=== PATIENT | male | born 1990 | race African-American/Black ===

== ENCOUNTER 2016-08-31 08:00 | Outpatient (CLI) | payer MEDICAID | END 2016-08-31 23:59 | disposition home or self-care (01) | DX: F33.3 Major depressive disorder, recurrent, severe with psychotic symptoms (principal); E55.9 Vitamin D deficiency, unspecified ==

== ENCOUNTER 2016-09-05 11:31 | Outpatient (CLI) | payer MEDICAID | END 2016-09-05 11:32 | disposition home or self-care (01) | DX: E78.00 Pure hypercholesterolemia, unspecified (principal) ==

== ENCOUNTER 2017-02-02 18:28 | Outpatient (CLI) | payer MEDICAID | END 2017-02-02 18:29 | disposition critical access hospital (66) | LOC: EMS 18:28 | PROVIDERS: ATTEND Surgery | DX: K08.89 Other specified disorders of teeth and supporting structures (principal) | CPT/HCPCS: A0425; A0429 ==

== ENCOUNTER 2017-02-02 18:52 | Emergency (ER) | payer MEDICAID ==
[2017-02-02 19:02] VITALS: BP 128/84
--- NOTE | 2017-02-02 20:26 | ED Physician Documentation ---
PD HPI HEENT - Stated complaint Stated Complaint: TOOTH PN - Chief complaint Chief Complaint: Heent - History obtained from History obtained from: Patient - History of Present Illness Timing - duration: Days Timing - details: Gradual onset, Still present, Waxing and waning Location: Tooth (right upper molar) Worsens: Swalllowing, Temperatures Associated symptoms: No: Fever, Congestion, Rhinorrhea, Facial swelling Recently seen: Not recently seen (had seen [facility] but told he needed referral to oral surgeon or such. But was not given name nor number of anyone.) Review of Systems Constitutional: denies: Fever, Chills Throat: reports: Dental pain / toothache. denies: Oral lesions / sores, Sore throat PD PAST MEDICAL HISTORY - Past Medical History Past Medical History: Yes Cardiovascular: High cholesterol - Past Surgical History Past Surgical History: No - Present Medications Home Medications: Ambulatory Orders Medication Instructions Recorded Confirmed Cephalexin [Keflex] 500 mg PO QID #24 capsule 02/02/17 HYDROcod/ACETAM 5/325 [[place] 5/325] 1 tab PO Q6H PRN #15 tablet 02/02/17 Naproxen 375 mg PO BID #20 tablet 02/02/17 - Allergies Allergies/Adverse Reactions: Allergies Allergy/AdvReac Type Severity Reaction Status Date / Time No Known Drug Allergies Allergy Verified 02/02/17 19:32 - Social History Does the pt smoke?: No Smoking Status: Never smoker Does the pt drink ETOH?: No Does the pt have substance abuse?: No - Immunizations Immunizations are current?: Yes - POLST Patient has POLST: No PD ED PE NORMAL - Vitals Vital signs reviewed: Yes - General General: Alert and oriented X 3, Well developed/nourished - HEENT HEENT: Pharynx benign. No: Dentition benign (most of his teeth are pretty good , actually, with right upper 2nd molar with decay of half of it, but in side of the tooth, leaving bowl shaped defect. Some mild swelling of gum, but is tender. ) - Neck Neck: Supple, no meningeal sign, No adenopathy - Cardiac Cardiac: RRR, No murmur - Respiratory Respiratory: Clear bilaterally - Derm Derm: Normal color, Warm and dry, No rash Results - Vitals Vitals: Vital Signs - 24 hr 02/02/17 19:01 Temperature 36.9 C Heart Rate 61 Respiratory 17 Rate Blood Pressure 128/84 H O2 Saturation 97 Oxygen O2 Source Room air PD MEDICAL DECISION MAKING - ED course Complexity details: considered differential (dental pain and some gum swelling. Tooth defect amenable to temporary filling, which I placed. ), d/w patient Departure - Departure Disposition: Home, Self Care Clinical Impression: Pain, dental, Dental infection Condition: Stable Record reviewed to determine appropriate education?: Yes Instructions: ED Tooth Pain Follow-Up: Osmar Kothari MD [Primary Care Provider] - Wallace Blank DDS [Physician No Access] - Prescriptions: Cephalexin [Keflex] 500 mg PO QID #24 capsule Naproxen 375 mg PO BID #20 tablet HYDROcod/ACETAM 5/325 [Melrose 5/325] 1 tab PO Q6H PRN #15 tablet PRN Reason: Pain Comments: Try to keep the temporary filling in place there and no firm chewing on that side. Naproxen twice daily for the next 7-10 days. Add Tylenol or hydrocodone if needed for pain. Cephalexin antibiotic for infection of the area. Follow- up with Akil nugent regarding tooth extraction. Alternatively there is she [facility] dental clinic. Discharge Date/Time: 02/02/17 20:56
[2017-02-02] MEDS ORDERED: HYDROcod/ACETAM 5/325 MG TABLET PO STA (20:43)
[2017-02-02] MEDS ORDERED: CEPHALEXIN 250 MG CAPSULE PO STA (20:43)
[2017-02-02] MEDS ORDERED: IBUPROFEN 400 MG TABLET PO STA (20:43)
[2017-02-02] MEDS ORDERED: IBUPROFEN 400 MG TABLET PO ONE (20:52)
[2017-02-02] MEDS ORDERED: HYDROcod/ACETAM 5/325 MG TABLET ONE (20:52)
[2017-02-02] MEDS ORDERED: CEPHALEXIN 250 MG CAPSULE PO ONE (20:52)
== END 2017-02-02 20:56 | disposition home or self-care (01) ==
LOC: ED 18:52
DX: K04.7 Periapical abscess without sinus (principal); K08.89 Other specified disorders of teeth and supporting structures; E78.00 Pure hypercholesterolemia, unspecified
CPT/HCPCS: 99283; A9270

== ENCOUNTER 2017-03-02 15:04 | Outpatient (CLI) | payer MEDICAID ==
[2017-03-03 13:11] LABS: CHOL/HDL RATIO 5.4 (<5.0); CHOLESTEROL 241 mg/dL; HDL CHOLESTEROL 45 mg/dL; LDL/HDL RATIO 4.1 (<3.6); TRIGLYCERIDES 67 mg/dL; VLDL CHOLESTEROL 13 mg/dL
== END 2017-03-02 15:05 | disposition home or self-care (01) ==
LOC: LAB.F 15:04
PROVIDERS: ATTEND Internal Medicine
DX: E78.00 Pure hypercholesterolemia, unspecified (principal); E55.9 Vitamin D deficiency, unspecified
CPT/HCPCS: 36415; 80061; 82306

== ENCOUNTER 2017-05-25 08:17 | Outpatient (CLI) | payer MEDICAID ==
[2017-05-25 10:51] LABS: ALBUMIN/GLOBULIN RATIO 1.5 (1.0-2.2); BILIRUBIN,TOTAL 0.9 mg/dL (0.2-1.0); BUN - BLOOD UREA NITROGEN 13 mg/dL (6-20); CALCIUM 9.5 mg/dL (8.5-10.3); CARBON DIOXIDE - CO2 28 mmol/L (21-32); CHLORIDE 102 mmol/L (101-111); CHOL/HDL RATIO 4.5 (<5.0); CHOLESTEROL 208 mg/dL; GFR - MDRD 108 (>89); GLUCOSE 120 mg/dL (70-100); HDL CHOLESTEROL 46 mg/dL; LDL/HDL RATIO 3.2 (<3.6); SODIUM 138 mmol/L (135-145); TOTAL PROTEIN 7.6 g/dL (6.7-8.2); TRIGLYCERIDES 75 mg/dL; VLDL CHOLESTEROL 15 mg/dL
== END 2017-05-25 08:18 | disposition home or self-care (01) ==
LOC: LAB.F 08:17
PROVIDERS: ATTEND Family Medicine
DX: E78.00 Pure hypercholesterolemia, unspecified (principal); E55.9 Vitamin D deficiency, unspecified
CPT/HCPCS: 36415; 80053; 80061; 82306

== ENCOUNTER 2018-03-14 10:30 | Emergency (ER) | payer MEDICAID ==
[2018-03-14 10:37] VITALS: BP 130/73
[2018-03-14] MEDS ORDERED: IBUPROFEN 800 MG TABLET PO STA (11:34)
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
--- NOTE | 2018-03-14 12:15 | XRAY Report ---
Reason: cough fever Procedure Date: 03/14/2018 Accession Number: [id number] / [id number] Procedure: XR - Chest 2 View X-Ray CPT Code: 49716 FULL RESULT: EXAM: CHEST RADIOGRAPHY EXAM DATE: 03/14/2018 11:45 AM. CLINICAL HISTORY: Cough, fever. COMPARISON: None. TECHNIQUE: 2 views. FINDINGS: Lungs/Pleura: No focal opacities evident. No pleural effusion. No pneumothorax. Normal volumes. Mediastinum: Heart and mediastinal contours are unremarkable. Other: None. IMPRESSION: Normal 2-view chest radiography. RADIA
== END 2018-03-14 12:30 | disposition home or self-care (01) ==
LOC: ED 10:30
DX: B34.9 Viral infection, unspecified (principal)
CPT/HCPCS: 71046; 87275; 87276; 99283; A9270

== ENCOUNTER 2018-05-04 14:33 | Outpatient (CLI) | payer MEDICAID ==
[2018-05-04 17:55] LABS: BASOPHILS % (AUTO) 0.8 %; EOSINOPHILS # (AUTO) 0.2 10^3/uL (0.0-0.7); EOSINOPHILS % (AUTO) 3.6 %; HGB - HEMOGLOBIN 13.6 g/dL (14.0-18.0); LYMPHOCYTES # (AUTO) 1.7 10^3/uL (1.5-3.5); LYMPHOCYTES % (AUTO) 37.6 %; MEAN CORPUSCULAR HEMOGLOBIN 22.1 pg (27.0-31.0); MEAN CORPUSCULAR HGB CONC 31.7 g/dL (32.0-36.0); MEAN CORPUSCULAR VOLUME 69.7 fL (80.0-94.0); MEAN PLATELET VOLUME 8.8 fL (7.4-11.4); MONOCYTES # (AUTO) 0.5 10^3/uL (0.0-1.0); MONOCYTES % (AUTO) 10.1 %; NEUTROPHILS # (AUTO) 2.2 10^3/uL (1.5-6.6); NEUTROPHILS % (AUTO) 47.9 %; PLT - PLATELET COUNT 207 10^3/uL (130-450); RED BLOOD COUNT 6.16 10^6/uL (4.70-6.10); RED CELL DISTRIBUTION WIDTH 15.5 % (12.0-15.0); WHITE BLOOD COUNT 4.6 x10^3/uL (4.8-10.8)
[2018-05-04 17:59] LABS: ALBUMIN 4.4 g/dL (3.2-5.5); ALBUMIN/GLOBULIN RATIO 1.4 (1.0-2.2); BILIRUBIN,TOTAL 0.8 mg/dL (0.2-1.0); CALCIUM 9.1 mg/dL (8.5-10.3); TOTAL PROTEIN 7.5 g/dL (6.7-8.2)
[2018-05-04 18:13] LABS: HB2 TOTAL 14.4 g/dL; HEMOGLOBIN A1C 0.62 g/dL; HEMOGLOBIN A1C % 6.1 % (4.6-6.2)
== END 2018-05-04 14:34 | disposition home or self-care (01) ==
LOC: LAB.F 14:33
PROVIDERS: ATTEND Registered Nurse
DX: R73.9 Hyperglycemia, unspecified (principal)
CPT/HCPCS: 36415; 80053; 82043; 83036; 84443; 85025

== ENCOUNTER 2018-12-12 12:39 | Outpatient (CLI) | payer MEDICAID ==
[2018-12-12 13:24] LABS: TROPONIN I < 0.04 ng/mL (<0.49)
[2018-12-12 13:26] LABS: CREATINE KINASE MB 0.7 ng/mL (0.6-6.3)
--- NOTE | 2018-12-12 14:17 | XRAY Report ---
Reason: CHEST DISCOMFORT Procedure Date: 12/12/2018 Accession Number: [id number] / [id number] Procedure: XR - Chest 2 View X-Ray CPT Code: 19427 FULL RESULT: EXAM: CHEST RADIOGRAPHY EXAM DATE: 12/12/2018 01:42 PM. CLINICAL HISTORY: Intermittent anterior mid chest discomfort for 1 week. COMPARISON: CHEST 2 VIEW 03/14/2018 11:34 AM. TECHNIQUE: 2 views. FINDINGS: Lungs/Pleura: No focal opacities evident. No pleural effusion. No pneumothorax. Normal volumes. Mediastinum: Heart and mediastinal contours are unremarkable. Other: None. IMPRESSION: Normal 2-view chest radiography. RADIA
== END 2018-12-12 12:40 | disposition home or self-care (01) ==
LOC: LAB 12:39
PROVIDERS: ATTEND Family Medicine
DX: R07.89 Other chest pain (principal)
CPT/HCPCS: 36415; 71046; 82553; 84484; 85379; 85651; 86140

== ENCOUNTER 2020-09-12 08:00 | Outpatient (CLI) | payer MEDICAID ==
[2020-09-12 14:56] LABS: BASOPHILS % (AUTO) 0.6 %; EOSINOPHILS # (AUTO) 0.1 10^3/uL (0.0-0.7); EOSINOPHILS % (AUTO) 1.6 %; HCT - HEMATOCRIT 45.4 % (42.0-52.0); HGB - HEMOGLOBIN 13.9 g/dL (14.0-18.0); LYMPHOCYTES # (AUTO) 2.3 10^3/uL (1.5-3.5); LYMPHOCYTES % (AUTO) 44.4 %; MEAN CORPUSCULAR HEMOGLOBIN 21.7 pg (27.0-31.0); MEAN CORPUSCULAR HGB CONC 30.6 g/dL (32.0-36.0); MEAN CORPUSCULAR VOLUME 70.9 fL (80.0-94.0); MEAN PLATELET VOLUME 10.4 fL (7.4-11.4); MONOCYTES # (AUTO) 0.4 10^3/uL (0.0-1.0); MONOCYTES % (AUTO) 7.8 %; NEUTROPHILS # (AUTO) 2.4 10^3/uL (1.5-6.6); NEUTROPHILS % (AUTO) 45.4 %; PLT - PLATELET COUNT 264 10^3/uL (130-450); RED CELL DISTRIBUTION WIDTH 16.9 % (12.0-15.0); WHITE BLOOD COUNT 5.2 x10^3/uL (4.8-10.8)
[2020-09-12 15:10] LABS: ALBUMIN 4.6 g/dL (3.2-5.5); ALBUMIN/GLOBULIN RATIO 1.5 (1.0-2.2); BILIRUBIN,TOTAL 0.8 mg/dL (0.2-1.0); CALCIUM 9.4 mg/dL (8.5-10.3); CREATININE 0.9 mg/dL (0.6-1.2); TOTAL PROTEIN 7.6 g/dL (6.7-8.2)
== END 2020-09-12 23:59 | disposition home or self-care (01) ==
LOC: LAB.S 08:00
PROVIDERS: ATTEND Emergency Medicine
DX: R10.13 Epigastric pain (principal); K21.9 Gastro-esophageal reflux disease without esophagitis
CPT/HCPCS: 36415; 80053; 83690; 85025

== ENCOUNTER 2020-09-14 08:00 | Outpatient (CLI) | payer MEDICAID ==
[2020-09-14 11:49] LABS: H. PYLORIS ANTIGEN STL NEGATIVE (Negative)
== END 2020-09-14 23:59 | disposition home or self-care (01) ==
LOC: LAB.R 08:00
PROVIDERS: ATTEND Emergency Medicine
DX: K21.9 Gastro-esophageal reflux disease without esophagitis (principal); R10.13 Epigastric pain
CPT/HCPCS: 87338

== ENCOUNTER 2020-09-30 13:48 | Outpatient (CLI) | payer MEDICAID ==
[2020-09-30 20:22] LABS: ESTIMATED AVERAGE GLUCOSE 240 mg/dL (70-100)
== END 2020-09-30 13:49 | disposition home or self-care (01) ==
LOC: LAB.S 13:48
PROVIDERS: ATTEND Physician Assistant
DX: R73.9 Hyperglycemia, unspecified (principal)
CPT/HCPCS: 36415; 83036

== ENCOUNTER 2020-11-09 16:41 | Outpatient (CLI) | payer MEDICAID | END 2020-11-09 16:42 | disposition home or self-care (01) | LOC: COV 16:41 | PROVIDERS: ATTEND Physician Assistant | DX: Z01.812 Encounter for preprocedural laboratory examination (principal); Z20.822 Contact with and (suspected) exposure to COVID-19 ==

== ENCOUNTER 2021-10-25 16:23 | Outpatient (CLI) | payer MEDICAID | END 2021-10-25 16:24 | disposition critical access hospital (66) | LOC: EMS 16:23 | DX: S00.03XA Contusion of scalp, initial encounter (principal); R51.9 Headache, unspecified; Y09 Assault by unspecified means | CPT/HCPCS: A0425; A0429; A0999 ==

== ENCOUNTER 2021-10-25 16:33 | Emergency (ER) | payer MEDICAID ==
[2021-10-25] MEDS ORDERED: ACETAMINOPHEN 500 MG TABLET PO STA (16:41)
[2021-10-25] MEDS ORDERED: IBUPROFEN 800 MG TABLET PO STA (16:41)
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
[2021-10-25 17:25] VITALS: BP 133/60
== END 2021-10-25 17:46 | disposition home or self-care (01) ==
LOC: EDUNIT# → ED 16:33
DX: S61.216A Laceration without foreign body of right little finger without damage to nail, initial encounter (principal); S00.81XA Abrasion of other part of head, initial encounter; S09.90XA Unspecified injury of head, initial encounter; Y00.XXXA Assault by blunt object, initial encounter
CPT/HCPCS: 12001; 99284; A9270

== ENCOUNTER 2022-06-25 11:07 | Emergency (ER) | payer MEDICAID ==
[2022-06-25 11:16] VITALS: BP 142/92
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
--- NOTE | 2022-06-25 12:03 | XRAY Report ---
PROCEDURE: Shoulder 3 View LT INDICATIONS: posterior shoulder pain X 6 months TECHNIQUE: 3 views of the shoulder were acquired. COMPARISON: None. FINDINGS: Bones: No fractures or dislocations. No suspicious bony lesions. Visualized ribs appear intact. Soft tissues: No suspicious soft tissue calcifications. IMPRESSION: No visualized acute fracture or dislocation. However, occult injury cannot be excluded. Recommend short interval imaging follow-up in 7-10 days as clinically indicated for additional evalua tion. Reviewed by: Angelia Concepcion MD on 06/25/2022 12:02 PM PST Approved by: Angelia Concepcion MD on 06/25/2022 12:02 PM [facility] Station ID: [id number]
== END 2022-06-25 11:59 | disposition home or self-care (01) ==
LOC: ED 11:07
DX: M25.512 Pain in left shoulder (principal)
CPT/HCPCS: 99283

== ENCOUNTER 2023-03-05 22:23 | Emergency (ER) | payer MEDICAID ==
--- NOTE | 2023-03-06 01:09 | XRAY Report ---
PROCEDURE: Hand 3 View RT INDICATIONS: SWELLING/PAIN + TENDERNESS R 1ST DIGIT TECHNIQUE: 3 views of the hand(s) acquired. COMPARISON: None. FINDINGS: Bones: No displaced fracture or dislocation. Soft tissues: No suspicious calcifications. IMPRESSION: No acute radiographic abnormality. If there is high concern for occult injury, consider repeat radiog juan or cross-sectional imaging. Reviewed by: David Miller MD on 03/06/2023 1:07 AM PDT Approved by: Davdi Miller MD on 03/06/2023 1:07 AM PDT Station ID: [id number]
[2023-03-06 03:18] VITALS: BP 144/95
--- NOTE | 2023-03-06 04:01 | ED Physician Documentation ---
PD HPI UPPER EXT INJURY - Stated complaint Stated Complaint: BILAT HAND PX - Chief complaint Chief Complaint: Ext Problem - History obtained from History obtained from: Patient - Additonal information Additional information: Patient is a 32-year-old male presenting for evaluation of injury to his left middle digit 4 days ago. Patient states that he accidentally cut part of his fingernail while opening a package. He then developed redness and swelling. 2 days ago he took an X-Acto knife to the area of swelling was able to express pus from the area.However since then he has had increased redness and swelling to the area. Patient also reports ongoing pain to the right thumb since August. Patient states that he accidentally hit his hand against something and since that time it has been hurting. He has not sought medical attention for this previously. He believes his last tetanus was a few years ago. When I asked if I could not verify if his last tetanus was in a few years ago would he be okay with getting a booster and he declines at this time.Does not take a blood thinner. He is not diabetic. Review of Systems Constitutional: denies: Fever Cardiac: denies: Chest pain / pressure Respiratory: denies: Dyspnea Musculoskeletal: reports: Extremity pain PD PAST MEDICAL HISTORY - Past Medical History Past Medical History: Yes Cardiovascular: High cholesterol - Past Surgical History Past Surgical History: No - Present Medications Home Medications: Ambulatory Orders Medication Instructions Recorded Confirmed Sulfamethox/Trimeth 800/160 1 each PO BID #14 tablet 03/06/23 [Bactrim Ds 800/160] cephALEXin [Keflex] 500 mg PO Q6H #28 cap 03/06/23 - Allergies Allergies/Adverse Reactions: Allergies Allergy/AdvReac Type Severity Reaction Status Date / Time No Known Drug Allergies Allergy Verified 03/05/23 22:37 - Social History Does the pt smoke?: Yes Smoking Status: Current every day smoker Does the pt drink ETOH?: No Does the pt have substance abuse?: No - Immunizations Immunizations are current?: Yes - POLST Patient has POLST: No PD ED PE NORMAL - General General: Alert and oriented X 3, No acute distress, Well developed/nourished - HEENT HEENT: Atraumatic - Extremities Extremities: Other (Redness and swelling To the proximal And the medial nail fold Of the left middle finger. Normal range of motion at all joints. Patient also reports pain to the right thumb but has normal range of motion Of the left thumb in all directions, no laxity with stress) Results - Vitals Vitals: Vital Signs - 24 hr 03/05/23 03/06/23 03/06/23 22:30 03:15 04:28 Temperature 37.1 C 36.7 C Heart Rate 72 66 76 Respiratory 18 16 16 Rate Blood Pressure 131/82 H 144/95 H O2 Saturation 100 95 100 Oxygen O2 Source Room air Procedures - Abscess I&D (location) L middle finger Preparation: Lidocaine 1% Incision: Other Other: Pt tolerated well, Antibiotic prescribed PD Medical Decision Making - ED course Complexity details: reviewed results, d/w patient ED course: Patient is a 32 old male presenting for evaluation of redness and swelling to the distal left middle digit. Exam is consistent with a paronychia. I was able to express a small amount of purulence. Patient also reports incising the area 2 days ago and reports that it was a large amount of pus at that time. Suspect he now has an associated cellulitis. Will start on Bactrim and Keflex and advised on strict return precautions for worsening symptoms. Patient also reports ongoing right thumb pain since August when he accidentally hit it against something. An x-ray was obtained which I reviewed and I see no fracture or dislocation. He is able to range of motion in the thumb in all planes without any issue. Encourage close follow-up with primary care regarding this concern. Departure - Departure Disposition: 01 Home, Self Care Clinical Impression: Paronychia of finger of left hand, Pain of right thumb Condition: Stable Instructions: ED Fingernail Infec Prescriptions: Sulfamethox/Trimeth 800/160 [Bactrim Ds 800/160] 1 each PO BID #14 tablet cephALEXin [Keflex] 500 mg PO Q6H #28 cap Comments: You have an infection to your left middle finger related to the fingernail. There was a little bit of pus that we were able to express this evening but I think you also have a cellulitis. I am starting you on 2 antibiotics and have sent these prescriptions to [facility] in [place]. We also evaluated you for pain in your right thumb that has been present for months and I do not see any fracture or dislocation on your x-ray. I would recommend close follow-up with your primary care provider. In regard to your finger infection, please keep a close eye on it and return for any worsening symptoms. I would also recommend using warm soaks a few times a day to see if it will further drain. Forms: PCP List Discharge Date/Time: 03/06/23 04:29
[2023-03-06] MEDS: cephALEXin 250 MG CAPSULE PO STA (04:23)
[2023-03-06] MEDS: SULFAMETH/TRIMETH DS 800/160 MG TABLET PO STA (04:23)
[2023-03-06 04:35] VITALS: O2SAT 100
== END 2023-03-06 04:29 | disposition home or self-care (01) ==
LOC: ED 22:23
DX: L03.012 Cellulitis of left finger (principal); M79.644 Pain in right finger(s); E78.00 Pure hypercholesterolemia, unspecified; F17.200 Nicotine dependence, unspecified, uncomplicated
CPT/HCPCS: 26010

== ENCOUNTER 2024-02-08 08:00 | Outpatient (CLI) | payer MEDICAID ==
--- NOTE | 2024-02-08 13:31 | XRAY Report ---
PROCEDURE: Scapula 2V RT INDICATIONS: RIGHT SHOULDER TENDON DISORDER TECHNIQUE: 2 views of the scapula were acquired. COMPARISON: None FINDINGS: Bones: No fractures or dislocations. No suspicious bony lesions. Visualized ribs appear intact. Soft tissues: Overlying soft tissues appear normal. IMPRESSION: No acute bony abnormality. Reviewed by: Rick Farrell MD on 02/08/2024 1:30 PM PDT Approved by: Rick Farrell MD on 02/08/2024 1:30 PM PDT Station ID: [id number]
== END 2024-02-08 23:59 | disposition home or self-care (01) ==
LOC: DI.S 08:00
PROVIDERS: ATTEND Physician Assistant
DX: M67.813 Other specified disorders of tendon, right shoulder (principal)